=== PATIENT | male | born 1955 | race African-American/Black ===

== ENCOUNTER 2023-06-26 08:06 | Emergency (ER) | payer MEDICARE, OTHER ==
[~2023-06-26] VITALS: Ht 188 cm; Wt 113.6 kg
[2023-06-26 08:23] VITALS: TEMP 98.1
[2023-06-26 08:58] LABS: BASOPHILS % (AUTO) 0.7 % (0.0-2.0); EOSINOPHILS % (AUTO) 1.1 % (1.0-6.0); HEMATOCRIT 40.5 % (41-53); HEMOGLOBIN 13.2 g/dL (13.5-17.5); LYMPHOCYTES # (AUTO) 1.5 K/uL (1.0-4.8); LYMPHOCYTES % (AUTO) 19.6 % (22.0-44.0); MEAN CORPUSCULAR HEMOGLOBIN 27.6 pg (26.0-34.0); MEAN CORPUSCULAR HGB CONC 32.6 G/dL (31.0-37.0); MEAN CORPUSCULAR VOLUME 85 fL (80-100); MONOCYTES # (AUTO) 0.5 K/uL (0.1-1.0); MONOCYTES % (AUTO) 6.3 % (2.0-9.0); NEUTROPHILS # (AUTO) 5.3 K/uL (1.8-7.7); NEUTROPHILS % (AUTO) 72.3 % (40.0-70.0); PLATELET COUNT (AUTO) 258 K/uL (150-450); RED BLOOD CELL COUNT(AUTO) 4.78 MIL/uL (4.50-5.90); RED CELL DISTRIBUTION WIDTH 14.7 % (11.5-14.5)
[2023-06-26 09:12] LABS: ANION GAP 11 mmol/L (8-16); CALCIUM, TOTAL 9.1 mg/dL (8.8-10.5); CARBON DIOXIDE 24 mmol/L (22-29); CHLORIDE 102 mmol/L (98-107); GLOMERULAR FILTR. RATE CALC > 60 mL/min (>60); GLUCOSE,RANDOM 101 mg/dL (70-110); POTASSIUM 3.8 mmol/L (3.5-5.1); SODIUM SERUM 137 mmol/L (136-145)
[2023-06-26 09:17] LABS: ALANINE AMINOTRANSFERASE 20 U/L (12-78); ALBUMIN 3.8 g/dL (3.4-5.0); ALKALINE PHOSPHATASE 85 U/L (46-116); ASPARTATE AMINOTRANSFERASE 21 U/L (15-37); TOTAL PROTEIN, SERUM 7.8 g/dL (6.4-8.2)
[2023-06-26] MEDS ORDERED: MECL-167 PO (10:34)
[2023-06-26 11:30] VITALS: BP 133/88; PULSE 94; RESP 16
[2023-06-29] MEDS ORDERED: MECL-167 PO (14:35)
== END 2023-06-26 11:46 | disposition home or self-care (01) ==
LOC: EMS 08:12
DX: H81.399 Other peripheral vertigo, unspecified ear (principal); E78.00 Pure hypercholesterolemia, unspecified; I10 Essential (primary) hypertension; F17.210 Nicotine dependence, cigarettes, uncomplicated
CPT/HCPCS: 70450; 80053; 84484; 85025; 93005; 99284; 99285

== ENCOUNTER 2025-07-02 05:53 | Emergency (ER) | payer MEDICARE, OTHER ==
[~2025-07-02] VITALS: Ht 188 cm; Wt 111.4 kg
[~2025-07-02 05:53] MED LIST: MECL-226 PO
[2025-07-02 05:57] VITALS: BP 109/78; PULSE 88; RESP 14; TEMP 97.7; O2SAT 97
[2025-07-02 06:28] LABS: COVID AG,FIA SOURCE NASAL SWAB
[2025-07-02 06:50] LABS: INFLUENZA TYPE A NEGATIVE FOR TYPE A (NEGATIVE); INFLUENZA TYPE B NEGATIVE FOR TYPE B (NEGATIVE)
[2025-07-02 08:28] LABS: SARS-COV2 (COVID) ANTIGEN,FIA Positive (Negative)
== END 2025-07-02 09:09 | disposition home or self-care (01) ==
LOC: EMS 05:53
DX: U07.1 COVID-19 (principal); E78.00 Pure hypercholesterolemia, unspecified; I10 Essential (primary) hypertension; F17.210 Nicotine dependence, cigarettes, uncomplicated; Z79.899 Other long term (current) drug therapy
CPT/HCPCS: 87804; 99283